=== PATIENT | male | born 1975 | race Caucasian/White ===

== ENCOUNTER 2020-10-02 09:13 | Outpatient (REF) | payer OTHER, SELFPAY | END 2020-10-02 09:14 | disposition home or self-care (01) | LOC: HO.LAB 09:13 | PROVIDERS: Visit Provider Internal Medicine | DX: Z20.828 Contact with and (suspected) exposure to other viral communicable diseases (principal) | CPT/HCPCS: C9803; U0003 ==

== ENCOUNTER 2022-11-03 08:34 | Outpatient (REF) | payer OTHER, SELFPAY ==
[2022-11-03 09:27] LABS: MANUAL DIFF FLAG NO
[2022-11-03 10:08] LABS: Basophils Percent Auto 0.7 % (0-2); Eosinophils Absolute Auto 0.1 X10*3/uL (0.0-0.4); Eosinophils Percent Auto 1.9 % (0-4); Hematocrit 48.3 % (42.0-52.0); Hemoglobin 16.3 g/dl (14.0-18.0); Imm Gran Abs Auto 0.01 X10*3/uL (0.00-0.03); Imm Gran Pct Auto 0.2 % (0.0-0.4); Lymphocytes Absolute Auto 1.6 X10*3/uL (1.2-4.9); Lymphocytes Percent Auto 27.8 % (20-40); Mean Corpuscular HGB Conc 33.7 g/dl (31.0-36.0); Mean Corpuscular Hemoglobin 29.7 pg (27.0-33.0); Mean Corpuscular Volume 88.1 fL (80.0-98.0); Mean Platelet Volume 10.6 fL (9.4-12.4); Monocytes Absolute Auto 0.4 X10*3/uL (0.1-1.2); Monocytes Percent Auto 6.7 % (2-11); Neutrophils Absolute Auto 3.6 x10*3/uL (2.0-8.3); Neutrophils Percent Auto 62.7 % (45-73); Platelet Count 212 X10*3/uL (160-400); Red Blood Count 5.48 X10*6/uL (4.60-5.80); Red Cell Distribution Width 13.2 % (11.0-16.0); White Blood Count 5.8 X10*3/uL (4.8-10.8)
[2022-11-03 11:18] LABS: Estimated Average Glucose 105 mg/dL; Hemoglobin A1c % 5.3 %
[2022-11-03 11:21] LABS: Alanine Aminotransferase 34 U/L (0-40); Albumin Level 4.3 g/dL (3.5-5.0); Alkaline Phosphatase 51 U/L (39-117); Anion Gap 11 (12-20); Aspartate Amino Transferase 19 U/L (5-37); Bilirubin Total 0.8 mg/dL (0.0-1.0); Blood Urea Nitrogen 13 mg/dL (9-16); Calcium 10.1 mg/dL (8.4-10.2); Carbon Dioxide 26 mmol/L (22-29); Chloride 107 mmol/L (96-108); Cholesterol 196 mg/dL; Estimated Glomerular Filt Rate > 60; Glucose Random 86 mg/dL (60-115); HDL Cholesterol 37 mg/dL; Iron 130 mcg/dL (45-160); LDL Cholesterol Calculated 132 mg/dl; Percent Iron Saturation 49 % (15-50); Potassium 4.3 mmol/L (3.3-5.1); Sodium 140 mmol/L (135-145); Total Iron Binding Capacity 268 mcg/dL (228-428); Total Protein 7.1 g/dL (6.5-8.0); Triglycerides 139 mg/dL; Unsaturated Iron Binding 138 ug/dL
[2022-11-03 11:54] LABS: Folate 12.5 ng/mL (> or = 4.0); Vitamin B12 526 pg/mL (200-900)
[2022-11-03 12:06] LABS: Ferritin 375 ng/mL (20-250); Insulin 8 uU/mL (2-29); TSH reflex Free T4 1.92 uIU/mL (0.32-4.0); Vitamin D 25-OH Total 20.4 ng/mL (>30)
[2022-11-04 12:58] LABS: Calcium (PTHI) 10.1 mg/dL (8.6-10.3); PTHI 73 pg/mL (16-77)
[2022-11-07 06:38] LABS: Vitamin B1 9 nmol/L (8-30)
[2022-11-07 17:47] LABS: Zinc 81 mcg/dL (60-130)
[2022-11-08 17:38] LABS: Vitamin A 44 mcg/dL (38-98)
== END 2022-11-03 08:35 | disposition home or self-care (01) ==
LOC: HO.LAB 08:34
PROVIDERS: Visit Provider Physician Assistant Surgical
DX: E66.9 Obesity, unspecified (principal); Z68.38 Body mass index [BMI] 38.0-38.9, adult; Z90.3 Acquired absence of stomach [part of]; Z71.3 Dietary counseling and surveillance
CPT/HCPCS: 36415; 80053; 80061; 82306; 82607; 82728; 82746; 83036; 83525; 83540; 83970; 84425; 84443; 84590; 84630; 85025; 86140; 99212

== ENCOUNTER → 2022-12-19 08:52 | Outpatient (BNVA) | payer OTHER, SELFPAY | PROVIDERS: Visit Provider Physician Assistant Surgical | DX: E66.9 Obesity, unspecified (principal); Z68.38 Body mass index [BMI] 38.0-38.9, adult; Z98.84 Bariatric surgery status; Z90.3 Acquired absence of stomach [part of] | CPT/HCPCS: 99212 ==

== ENCOUNTER 2022-12-25 13:40 | Emergency (ER) | payer OTHER, SELFPAY ==
--- NOTE | ~2022-12-25 | XR_ITS ---
EXAMINATION: XR SHOULDER, LEFT CLINICAL INFORMATION: Left shoulder pain. COMPARISON: None TECHNIQUE: Three views of the left shoulder. FINDINGS: Mild to moderate calcification is seen along the distal margin of the rotator cuff near the greater tuberosity. The glenohumeral and acromioclavicular joints are intact. There is no acute fracture or dislocation. The visualized left ribs are intact. The soft tissues are unremarkable. XR/XR shoulder LT min 2V IMPRESSION: Mild to moderate distal rotator cuff calcific tendinosis without other significant abnormality.
[2022-12-25 14:05] VITALS: BP 131/69; PULSE 69; RESP 20; TEMP 36.7; O2SAT 97; BMI 37.5
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
== END 2022-12-25 15:29 | disposition home or self-care (01) ==
PROVIDERS: Emergency Provider Student in an Organized Health Care Education/Training Program
DX: M75.32 Calcific tendinitis of left shoulder (principal); Z79.899 Other long term (current) drug therapy
CPT/HCPCS: 73030; 99282; 99283

== ENCOUNTER 2025-01-25 08:36 | Outpatient (AMB) | payer OTHER, SELFPAY ==
--- NOTE | 2025-01-25 08:53 | MHC.OFFVISWM ---
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 He is approximately 5 years 10 months post sleeve gastrectomy performed on 03/22/2019. He was last seen in the office 12/19/2022 with a weight of 239.4 lb and a BMI of 38.6. Weight today is 261.4 lb with a BMI of 41. He states that he has not in several years as he had a lot going on personally. This has improved and he is now excited to return to weight loss. Meal plan: nothing formal previously using pure protein powder shakes and pure protein / fit crunch bars exercise plan: nothing formal treadmill at home [facility] Surgical History History of sleeve gastrectomy Family History Mother No problems noted. Father Diabetes Social History Alcohol intake: never Patient Tobacco Use Status: Never used Tobacco Physical Exam Vital Signs: Last Vital Signs Temp 98.5 F 01/25/25 09:01 Pulse 73 01/25/25 09:01 BP 138/75 01/25/25 09:01 Pulse Ox 96 01/25/25 09:01 Oxygen Delivery Method Room Air 01/25/25 09:01 BMI result Body Mass Index 40.9 Const General: healthy appearing and no acute distress Resp Effort & Inspection: normal respiratory effort Auscultation: clear to auscultation bilaterally Cardio Rate: regular rate Rhythm: regular rhythm GI Auscultation: normal bowel sounds Extrem General: Yes normal to inspection Assessment & Plan Assessment & Plan (1) Status post sleeve gastrectomy: Code(s): Z90.3 - Acquired absence of stomach [part of] Category: Surgical Plan: Check yearly labs. Patient will start right BMI mik. patient given my cell phone number to text his weight weekly and with any questions or concerns encouraged to follow the meal plan exactly. Encouraged to begin exercising with his treadmill that he has at home. Encouraged to take his multivitamin daily as well as vitamin-D. We will have him return to the office in a proximally 4 weeks. He will consider using Zepbound at the next appointment if limited success Orders: Orders Insulin Today E55.9 - Vitamin D deficiency, unspecified, Z90.3 - Acquired absence of stomach [part of] Hemoglobin A1c Today E55.9 - Vitamin D deficiency, unspecified, Z90.3 - Acquired absence of stomach [part of] Complete Blood Count Auto Diff Today E55.9 - Vitamin D deficiency, unspecified, Z90.3 - Acquired absence of stomach [part of] Comprehensive Met. Panel Today E55.9 - Vitamin D deficiency, unspecified, Z90.3 - Acquired absence of stomach [part of] Vitamin B12 and Folate Today E55.9 - Vitamin D deficiency, unspecified, Z90.3 - Acquired absence of stomach [part of] C Reactive Protein Today E55.9 - Vitamin D deficiency, unspecified, Z90.3 - Acquired absence of stomach [part of] Ferritin Today E55.9 - Vitamin D deficiency, unspecified, Z90.3 - Acquired absence of stomach [part of] Vitamin D 25-OH Total Today E55.9 - Vitamin D deficiency, unspecified, Z90.3 - Acquired absence of stomach [part of] Lipid Panel Today E55.9 - Vitamin D deficiency, unspecified, Z90.3 - Acquired absence of stomach [part of] IRON PROFILE Today E55.9 - Vitamin D deficiency, unspecified, Z90.3 - Acquired absence of stomach [part of] Zinc Today E55.9 - Vitamin D deficiency, unspecified, Z90.3 - Acquired absence of stomach [part of] Vitamin B1 Today E55.9 - Vitamin D deficiency, unspecified, Z90.3 - Acquired absence of stomach [part of] Vitamin A Today E55.9 - Vitamin D deficiency, unspecified, Z90.3 - Acquired absence of stomach [part of] TSH reflex Free T4 Today E55.9 - Vitamin D deficiency, unspecified, Z90.3 - Acquired absence of stomach [part of]
[2025-01-25 09:01] VITALS: BP 138/75; PULSE 73; TEMP 36.9; O2SAT 96; BMI 40.9
== END 2025-01-25 09:25 | disposition home or self-care (01) ==
LOC: HO.HBS 08:37
PROVIDERS: Visit Provider Physician Assistant Surgical
DX: E66.3 Overweight (principal); Z68.28 Body mass index [BMI] 28.0-28.9, adult; Z90.3 Acquired absence of stomach [part of]; Z98.84 Bariatric surgery status
CPT/HCPCS: 99213

== ENCOUNTER 2025-02-18 09:45 | Outpatient (REF) | payer OTHER, SELFPAY ==
[2025-02-18 10:14] LABS: MANUAL DIFF FLAG NO
[2025-02-18 10:45] LABS: Basophils Absolute Auto 0.1 X10*3/uL (0.0-0.2); Basophils Percent Auto 1.2 % (0-2); Eosinophils Absolute Auto 0.1 X10*3/uL (0.0-0.4); Eosinophils Percent Auto 2.5 % (0-4); Hematocrit 42.5 % (42.0-52.0); Hemoglobin 15.1 g/dl (14.0-18.0); Imm Gran Abs Auto 0.01 X10*3/uL (0.00-0.03); Imm Gran Pct Auto 0.2 % (0.0-0.4); Lymphocytes Absolute Auto 1.6 X10*3/uL (1.2-4.9); Lymphocytes Percent Auto 30.4 % (20-40); Mean Corpuscular HGB Conc 35.5 g/dl (31.0-36.0); Mean Corpuscular Hemoglobin 30.4 pg (27.0-33.0); Mean Corpuscular Volume 85.7 fL (80.0-98.0); Mean Platelet Volume 10.4 fL (9.4-12.4); Monocytes Absolute Auto 0.5 X10*3/uL (0.1-1.2); Monocytes Percent Auto 9.4 % (2-11); Neutrophils Absolute Auto 2.9 x10*3/uL (2.0-8.3); Neutrophils Percent Auto 56.3 % (45-73); Platelet Count 190 X10*3/uL (160-400); Red Blood Count 4.96 X10*6/uL (4.60-5.80); Red Cell Distribution Width 13.6 % (11.0-16.0); White Blood Count 5.2 X10*3/uL (4.8-10.8)
[2025-02-18 11:06] LABS: Anion Gap 9 (12-20)
[2025-02-18 11:14] LABS: Alanine Aminotransferase 30 U/L (0-40); Albumin Level 4.1 g/dL (3.5-5.0); Alkaline Phosphatase 50 U/L (39-117); Aspartate Amino Transferase 23 U/L (5-37); Blood Urea Nitrogen 12 mg/dL (9-16); C Reactive Protein 0.29 mg/dL (< or = 0.50); Calcium 9.6 mg/dL (8.4-10.2); Carbon Dioxide 24 mmol/L (22-29); Chloride 108 mmol/L (96-108); Cholesterol 203 mg/dL (<200); Estimated Glomerular Filt Rate > 60; Glucose Random 90 mg/dL (60-115); HDL Cholesterol 37 mg/dL (>40); Iron 109 mcg/dL (45-160); LDL Cholesterol Calculated 144 mg/dL (<100); Percent Iron Saturation 44 % (15-50); Sodium 137 mmol/L (135-145); Total Iron Binding Capacity 248 mcg/dL (228-428); Total Protein 6.9 g/dL (6.5-8.0); Triglycerides 111 mg/dL (<150); Unsaturated Iron Binding 139 ug/dL
[2025-02-18 11:16] LABS: Estimated Average Glucose 108 mg/dL; Hemoglobin A1C 138.4328 umol/L; Hemoglobin A1c % 5.4 % (<6.0)
[2025-02-18 11:39] LABS: Ferritin 344 ng/mL (20-250); TSH reflex Free T4 1.55 uIU/mL (0.32-4.0); Vitamin D 25-OH Total 29.1 ng/mL (>30)
[2025-02-18 11:44] LABS: Folate 11.5 ng/mL (> or = 4.0); Vitamin B12 449 pg/mL (200-900)
[2025-02-18 12:08] LABS: Insulin 6 uU/mL (2-29)
[2025-02-21 15:03] LABS: Zinc 73 mcg/dL (60-130)
[2025-02-22 17:43] LABS: Vitamin A 39 mcg/dL (38-98)
[2025-02-25 16:28] LABS: Vitamin B1 13 nmol/L (8-30)
== END 2025-02-18 09:46 | disposition home or self-care (01) ==
LOC: HO.LAB 09:45
PROVIDERS: Visit Provider Physician Assistant Surgical
DX: Z90.3 Acquired absence of stomach [part of] (principal); E55.9 Vitamin D deficiency, unspecified
CPT/HCPCS: 36415; 80053; 80061; 82306; 82607; 82728; 82746; 83036; 83525; 83540; 84425; 84443; 84590; 84630; 85025; 86140

== ENCOUNTER 2025-03-03 10:30 | Outpatient (AMB) | payer OTHER, SELFPAY ==
--- NOTE | 2025-03-03 09:50 | A.OFFVIS_ITS ---
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 He is approximately 6 years post sleeve gastrectomy performed on 03/22/2019. He was last seen in the office about a month ago with a weight of 261.4 lb and a BMI of 41. At that time, we discussed the use of the [employer] mik as well as initiating an exercise program utilizing his treadmill. GLP 1 medications were discussed and he stated he would think about this and did not want to start it at the time of the appointment. He reports weight today is 245.4 lb with a BMI of 38.4. He has lost 16 lb. 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 [facility] Surgical History History of sleeve gastrectomy Family History Mother No problems noted. Father Diabetes Social History Alcohol intake: never Patient Tobacco Use Status: Never used Tobacco Telehealth Telehealth Telehealth Platform: Telephone Location of provider rendering services: practice address Location of patient: other Patient Identification confirmed using: Name, : Yes Telehealth method: voice only Patient verbally consented to treatment: Yes Patient verbally consented to billing insurance company: Yes Patient informed of any privacy concerns related to visit: Yes Minutes spent on Phone/Video with Pt.: 12 Assessment & Plan Assessment & Plan (1) Status post sleeve gastrectomy: Code(s): Z90.3 - Acquired absence of stomach [part of] Category: Surgical Plan: Patient has made good progress. Utilizing right BMI mik. Lost 16 lb. He will continue to do so. 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 We will have him return to the office in 2 months
[2025-03-03 09:51] VITALS: BMI 38.4
== END 2025-03-03 10:51 | disposition home or self-care (01) ==
LOC: HO.HBS 10:38
PROVIDERS: Visit Provider Physician Assistant Surgical
DX: E66.9 Obesity, unspecified (principal); Z68.38 Body mass index [BMI] 38.0-38.9, adult; Z90.3 Acquired absence of stomach [part of]
CPT/HCPCS: 98013

== ENCOUNTER → 2025-03-03 10:30 | Outpatient (BNVA) | payer OTHER, SELFPAY | PROVIDERS: Visit Provider Physician Assistant Surgical | DX: Z90.3 Acquired absence of stomach [part of] (principal); E55.9 Vitamin D deficiency, unspecified ==

== ENCOUNTER 2025-03-21 18:03 | Emergency (ER) | payer OTHER, SELFPAY ==
--- NOTE | ~2025-03-21 | XR_ITS ---
CLINICAL HISTORY: LUE pain.work inj 3 view left humerus Comparison: CR/SR - XR SHOULDER LT MIN 2V - 12/25/22 14:31 EST Findings: No fractures or dislocations. No significant arthritic change. No radiopaque foreign body. IMPRESSION: 1. Normal left humerus This document has been electronically signed by: Shell Pérez MD on 03/21/2025 19:26:34
--- NOTE | ~2025-03-21 | XR_ITS ---
CLINICAL HISTORY: L shoulder pain s p hyper-ext 3 view left shoulder Comparison: CR/SR - XR SHOULDER LT MIN 2V - 12/25/22 14:31 EST Findings: Bones intact. No dislocations. No significant loss of joint space or osteophytes. No erosions. No radiopaque foreign body. Calcific soft tissue density along the superolateral aspect of the humeral head consistent with calcific tendinitis. IMPRESSION: No evidence of acute fracture or dislocation. Calcific soft tissue density along the superolateral aspect of the humeral head consistent with calcific tendinitis. This document has been electronically signed by: Shell Pérez MD on 03/21/2025 19:26:40
[2025-03-21 18:25] VITALS: BP 112/82; PULSE 83; RESP 20; TEMP 36.7; O2SAT 96; BMI 40.4
--- NOTE | 2025-03-21 18:26 | ED.UPPEXIN ---
HPI - Extremity Injury (Upper) General Chief Complaint: Extremity Injury, Upper Stated Complaint: Left shoulder inj from work Time Seen by Provider: 03/21/25 22:26 Source: patient Limitations: no limitations History of Present Illness ED Provider: Nu Diana PA-C HPI narrative: 49-year-old male presents with left shoulder injury. Patient states he was at work, he was trying to hang a weed whacker onto the wall, subsequently fell on him, he hyperextended the shoulder. Now with limited range of motion in lateral raise. Related Data Previous Rx's ?Medication ?Instructions ?Recorded cholecalciferol (vitamin D3) 50 50 mcg PO DAILY #90 caps 11/10/22 mcg (2,000 unit) capsule meloxicam 15 mg tablet 15 mg PO DAILY #7 tabs 03/22/25 methocarbamol 750 mg tablet 1,500 mg (2 x 750 mg) PO Q8H PRN 03/22/25 pain, moderate #20 tabs methylprednisolone 4 mg tablets in 4 mg PO QAM #21 ea 03/22/25 a dose pack (Medrol (Mani)) Allergies Allergy/AdvReac Type Severity Reaction Status Date / Time No Known Allergies Allergy Verified 03/21/25 18:28 [No Known Allergies*] Review of Systems Review of Systems: Yes all other systems are reviewed and are negative Constitutional: Constitutional: Denies fatigue and Denies fever(s) Musculoskeletal: Musculoskeletal: Reports arthralgias, Reports joint swelling, Denies numbness and Denies tingling Neurologic: Denies numbness and Denies tingling Endocrine: Endocrine: Denies fatigue PMFSH Past Medical History Attestation statement: The following information was validated with the patient. Surgical History History of sleeve gastrectomy Family History Family History Mother No problems noted. Father Diabetes Social History Social History Alcohol intake: never Patient Tobacco Use Status: Never used Tobacco Smoked in Last 30 Days: No Use of substances other than those prescribed or required for medical reasons: No Advance Directives: No Advance Directives Information Provided: Yes Physical Exam Vital Signs: Vital Signs: Last Vital Signs Temp 97.9 F 03/21/25 22:24 Pulse 69 03/21/25 22:24 Resp 16 03/21/25 22:24 BP 147/94 H 03/21/25 22:24 Pulse Ox 98 03/21/25 22:24 O2 Del Method Room Air 03/21/25 22:24 BMI result Body Mass Index 40.4 Const: Other: Alert Orientation/consciousness: patient oriented x3 Resp: Effort & Inspection: normal respiratory effort Cardio: Other: Normal peripheral perfusion Skin: Other: Warm dry no rash Neuro: General: patient oriented x3, gait normal, no focal motor deficits and CN's II-XI intact bilaterally Extrem: Other: Unable to perform full lateral raise, able to flex and extend from the elbow, palpable pain within bicipital groove Psych: Other: Cooperative Course Course Course Narrative: This is a Rapid Medical Exam performed in triage by Marli Brock PA-C. Full HPI, ROS and PE to be performed by primary ED provider. 49 yo M w/PMHx sleeve gastrectomy presenting to the ED c/o L shoulder pain s/p moving weed angy at work & hyper-extending arm s/p trying to hang on hook however came falling down on him & took his arm with it. PE: no deformity. +ttp to anterior shoulder. Limited ROM secondary to pain. Neurovascularly intact distally Plan: XR Medications Administered Discontinued Medications Generic Name Dose Route Start Last Admin Trade Name Freq PRN Reason Stop Dose Admin Ketorolac Tromethamine 15 mg 03/21/25 23:47 03/21/25 23:50 Ketorolac Tromethamine 15 Mg/Ml Vial IM 03/21/25 23:48 15 mg ONCE ONE Administration Methocarbamol 1,500 mg 03/22/25 00:08 03/22/25 00:11 Methocarbamol 750 Mg Tablet PO 03/22/25 00:09 1,500 mg ONCE ONE Administration Medical Decision Making Medical Decision Making MDM Narrative: 49-year-old male presents with left shoulder injury. Patient states he was at work, he was trying to hang a weed whacker onto the wall, subsequently fell on him, he hyperextended the shoulder. Now with limited range of motion in lateral raise. To note, patient performs a great deal of physical activity at work, many repetitive activities. Problem: Repeat physical stressors History: Per patient I have considered the following differential diagnoses: Fracture, dislocation, strain/sprain Plan: X-rays obtained from triage, there was no fracture or dislocation, he is incidentally found to have calcific tendonitis. We will treat accordingly, placing the patient in a sling, sending with the Orthopedic contact. I have independently reviewed the following tests: X-ray left shoulder: IMPRESSION: No evidence of acute fracture or dislocation. Calcific soft tissue density along the superolateral aspect of the humeral head consistent with calcific tendinitis. X-ray left humerus:Findings: No fractures or dislocations. No significant arthritic change. No radiopaque foreign body. IMPRESSION: 1. Normal left humerus Discharge Plan Discharge Clinical Impression: Calcific tendinitis of left shoulder Patient Disposition: Home, Self-Care Instructions: Calcific Tendinitis (ED) Additional Instructions: You were found to have tendonitis. See home care instructions. Use the sling as needed for support. To note, you need to release the arm from the sling several times a day and allowthe arm to hang freely, performing rotational movements as you were instructed to do in the emergency department. This will help to prevent frozen shoulder. Take the meloxicam as directed, this is an anti-inflammatory take it with food. Take the Medrol dose pack as directed, this is an additional anti-inflammatory, be sure to take it in the mornings, it can affect your sleep. Use the methocarbamol as needed for further pain, this is a muscle relaxant, do not drive or operate machinery while taking this medication. I am providing you with a contact for our orthopedic service, you may benefit from cortisone injections. Prescriptions: New meloxicam 15 mg tablet 15 mg PO DAILY Qty: 7 0RF methylprednisolone [Medrol (Mani)] 4 mg tablets,dose pack 4 mg PO QAM Qty: 21 0RF Rx Instructions: Take per package instructions methocarbamol 750 mg tablet 1,500 mg PO Q8H PRN (Reason: pain, moderate) Qty: 20 0RF No Action cholecalciferol (vitamin D3) 50 mcg (2,000 unit) capsule 50 mcg PO DAILY Qty: 90 3RF Stand Alone Forms: Work/School Release Print Language: Bangladeshi
[2025-03-21 22:24] VITALS: BP 147/94; PULSE 69; RESP 16; TEMP 36.6; O2SAT 98
[2025-03-21] MEDS: Ketorolac Tromethamine 15 MG/ML VIAL IM (23:50)
[2025-03-22] MEDS: methocarbamoL 750 MG TABLET 1500 MG PO (00:11)
[2025-03-22 00:46] VITALS: BP 147/94; PULSE 69; RESP 16; TEMP 36.6; O2SAT 98
== END 2025-03-22 00:52 | disposition home or self-care (01) ==
PROVIDERS: Emergency Provider Emergency Medicine Emergency Medical Services
DX: M75.32 Calcific tendinitis of left shoulder (principal); Z98.84 Bariatric surgery status; Z79.899 Other long term (current) drug therapy
CPT/HCPCS: 73030; 73060; 96372; 99284; J1885

== ENCOUNTER → 2025-03-21 18:29 | Outpatient (BNV) | payer OTHER, SELFPAY | PROVIDERS: Visit Provider Student in an Organized Health Care Education/Training Program | DX: M61.512 Other ossification of muscle, left shoulder (principal); M79.662 Pain in left lower leg | CPT/HCPCS: 73030; 73060 ==

== ENCOUNTER 2025-05-04 11:15 | Outpatient (AMB) | payer OTHER, SELFPAY ==
--- NOTE | 2025-05-04 09:47 | A.OFFVIS_ITS ---
VS Expanded 05/04/25 09:48 Height 5 ft 7 in Weight 250 lb 4 oz BMI 39.2 Intake Visit Reasons: TV PO LSG 03/22/19 *GLP-1 Medication* Healthcare Project Manager Required: No Allergies No Known Allergies (No Known Allergies*) Allergy (Verified 03/21/25 18:28) Medication List - Last Reconciled 05/04/25 by JOHANN Rich cholecalciferol (vitamin D3) 50 mcg PO DAILY meloxicam 15 mg PO DAILY methocarbamol 1,500 mg (2 x 750 mg) PO Q8H PRN methylprednisolone (Medrol (Mani)) 4 mg PO QAM HPI Comments Details: Patient is a pleasant 49-year-old male who returns to the office today in follow-up. He is approximately 6 years 1.5 month post sleeve gastrectomy performed on 03/22/2019. He was seen in the office on 01/25/25 with a weight of 261.4 lb and a BMI of 41 after not being seen in the office for some time. At that time, we discussed the use of the [employer] mik as well as initiating an exercise program utilizing his treadmill. GLP 1 medications were discussed and he stated he would think about this and did not want to start it at the time of the appointment. He reports weight today is 250.4 lb with a BMI of 39.2. He has lost 11 lb. Using [employer] website. He has gained weight since his last appointment back in February. Recently diagnosed with calcific tendinitis due to an accident at work and started on steroid oral medication. He states that he has been using the [employer] but would sometimes eat more than he is supposed to at night, sometimes skipping a bar. He states that he is going to start to consume prepared meals. We discussed how this can adversely affect his goals. 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 Father Diabetes Social History Alcohol intake: never Patient Tobacco Use Status: Never used Tobacco Telehealth Telehealth Telehealth Platform: Telephone Location of provider rendering services: practice address Location of patient: address on file Patient Identification confirmed using: Name, : Yes Telehealth method: voice only Patient verbally consented to treatment: Yes Patient verbally consented to billing insurance company: Yes Patient informed of any privacy concerns related to visit: Yes Minutes spent on Phone/Video with Pt.: 12 Assessment & Plan Assessment & Plan (1) Status post sleeve gastrectomy: Code(s): Z90.3 - Acquired absence of stomach [part of] Category: Surgical Plan: Encouraged to follow the meal plan exactly as written in the right BMI mik. Encouraged to use his treadmill at home daily, with a goal of burning 300 calories per day. Encouraged to communicate weekly which he has not been doing Return to clinic 1 month
[2025-05-04 09:48] VITALS: BMI 39.2
== END 2025-05-04 11:18 | disposition home or self-care (01) ==
LOC: HO.HBS 11:15
PROVIDERS: Visit Provider Physician Assistant Surgical
DX: E66.9 Obesity, unspecified (principal); Z68.39 Body mass index [BMI] 39.0-39.9, adult; Z90.3 Acquired absence of stomach [part of]; Z98.84 Bariatric surgery status
CPT/HCPCS: 99213

== ENCOUNTER 2025-06-02 10:00 | Outpatient (AMB) | payer OTHER, SELFPAY ==
[2025-06-02 08:18] VITALS: BMI 37.9
--- NOTE | 2025-06-02 08:18 | MHC.OFFVISWM ---
VS Expanded 06/02/25 08:18 Height 5 ft 7 in Weight 242 lb 2 oz BMI 37.9 Intake Visit Reasons: TV PO LSG 03/22/19 GLP-1 [employer] Required: No Allergies No Known Allergies (No Known Allergies*) Allergy (Verified 03/21/25 18:28) Medication List - Last Reconciled 06/02/25 by JOHANN Rich cholecalciferol (vitamin D3) 50 mcg PO DAILY meloxicam 15 mg PO DAILY methocarbamol 1,500 mg (2 x 750 mg) PO Q8H PRN HPI Comments Details: Patient is a pleasant 49-year-old male who returns to the office today in follow-up. He is approximately 6 years 3 month post sleeve gastrectomy performed on 03/22/2019. He was seen in the office on 01/25/25 with a weight of 261.4 lb and a BMI of 41 after not being seen in the office for some time. At that time, we discussed the use of the [employer] mik as well as initiating an exercise program utilizing his treadmill. GLP 1 medications were discussed and he stated he would think about this and did not want to start it at the time of the appointment. He reports weight today is 242.2 lb with a BMI of 37.9. He has lost 19.2 lb. Using [employer] website. Recently diagnosed with calcific tendinitis due to an accident at work and started on steroid oral medication. He states that he has a few more therapy sessions and then he will be discharged from therapy. Additionally, he states that he got tired of using shakes and bars and switch to a completely different meal plan on his own. He does state that he still wants to lose weight and achieve a healthier lifestyle. 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 Father Diabetes Social History Alcohol intake: never Patient Tobacco Use Status: Never used Tobacco Telehealth Telehealth Telehealth Platform: Telephone Location of provider rendering services: practice address Location of patient: address on file Patient Identification confirmed using: Name, : Yes Telehealth method: voice only Patient verbally consented to treatment: Yes Patient verbally consented to billing insurance company: Yes Patient informed of any privacy concerns related to visit: Yes Minutes spent on Phone/Video with Pt.: 15 Assessment & Plan Assessment & Plan (1) Status post sleeve gastrectomy: Code(s): Z90.3 - Acquired absence of stomach [part of] Category: Surgical Plan: Discussed multiple issues: Patient created his own meal plan without advice or communication. While he has lost weight overall since January, this is likely due to his very active job. Encouraged to return to the right BMI mik, put in his current weight and resume a structured meal plan. He states he will do so. Additionally discussed the importance of exercise despite his active job as a process development chemist. He has a treadmill at home, encouraged to use this daily with a goal of burning 300 calories per day, 7 days a week, tracking calories burned, or 2000 calories per week. He states that he will start to do this. We will have him return to clinic 2 months. Encouraged to text with his weight is and with any questions or concerns.
== END 2025-06-02 10:06 | disposition home or self-care (01) ==
LOC: HO.HBS 10:05
PROVIDERS: Visit Provider Physician Assistant Surgical
DX: E66.9 Obesity, unspecified (principal); Z68.37 Body mass index [BMI] 37.0-37.9, adult; Z90.3 Acquired absence of stomach [part of]; Z98.84 Bariatric surgery status
CPT/HCPCS: 98013